=== PATIENT | female | born 2000 | race Caucasian/White ===

== ENCOUNTER 2021-06-23 16:40 | Outpatient (CLI) | payer OTHER ==
--- NOTE | 2021-06-24 10:11 | Ultrasound Report ---
PROCEDURE: OB F/U or Repeat INDICATIONS: SUPERVISION OF OUTSIDE/PRIOR DATING DATA: Last menstrual period (LMP): Unknown. First dating scan (date and location): April 21, 2021. Estimated date of delivery (LACI) from first dating scan: September 05, 2021. TECHNIQUE: Real-time scanning was performed of the fetus, with image documentation and biometric measurements. COMPARISON: Reference is made to the outside report. FINDINGS: General: A single living intrauterine gestation is present. Presentation: Vertex Placenta: Placental position is post, without previa. Amniotic fluid index: 13.9 cm, appropriate for gestational age. heart rate: 138 beats per minute. Maternal cervical canal: Not well seen. biometrics: Biparietal diameter: 7.1 cm Head circumference: 27 cm Abdominal circumference: 24.2 cm Femur length: 5.7 cm Estimated gestational age from initial scan: 29 weeks, 3 days. Composite gestational age from present scan: 29 weeks, 1 day Estimated weight and percentile: 1323.1 grams; 23.8 percentile Measurement variability in biometric dating: +/- 10 days from 12-20 weeks gestation, +/- 2 weeks from 20-30 weeks gestation, +/- 3 weeks at 30 weeks gestation or more. Other: A prominent, placental hypoechoic area is seen, measuring approximately 3.1 x 2.3 cm, likely r epresenting a placental hong. IMPRESSION: Single intrauterine gestation as detailed above. Reviewed by: Joel Bernal MD on 06/24/2021 10:10 AM PDT Approved by: Joel Bernal MD on 06/24/2021 10:10 AM PDT Station ID: [id number]
== END 2021-06-23 16:41 | disposition home or self-care (01) ==
LOC: DI 16:40
PROVIDERS: ATTEND Family Medicine
DX: Z34.93 Encounter for supervision of normal pregnancy, unspecified, third trimester (principal)